=== PATIENT | female | born 1995 | race Two or more races ===

== ENCOUNTER 2022-08-01 10:06 | Emergency (ER) | payer MEDICAID, OTHER ==
[~2022-08-01] VITALS: Ht 165.1 cm; Wt 110.6 kg
[2022-08-01 10:40] VITALS: BP 155/77
[2022-08-01] MEDS ORDERED: IBUP800T27 PO ×2 (11:25→11:26)
== END 2022-08-01 11:23 | disposition home or self-care (01) ==
LOC: ER 10:06
DX: S63.501A Unspecified sprain of right wrist, initial encounter (principal); Z79.1 Long term (current) use of non-steroidal anti-inflammatories (NSAID); Z88.0 Allergy status to penicillin; Z88.1 Allergy status to other antibiotic agents; Z88.8 Allergy status to other drugs, medicaments and biological substances; X50.1XXA Overexertion from prolonged static or awkward postures, initial encounter; Y93.89 Activity, other specified; Y92.89 Other specified places as the place of occurrence of the external cause; Y99.8 Other external cause status
CPT/HCPCS: 73130

== ENCOUNTER 2022-12-14 20:34 | Emergency (ER) | payer MEDICAID ==
[~2022-12-14] VITALS: Ht 165.1 cm; Wt 117.2 kg
[~2022-12-14 20:34] MED LIST: IBUP-1456 PO
[2022-12-14 21:16] LABS: Albumin 3.7 g/dL (3.4-5.0); Calcium 8.4 mg/dL (8.5-10.1); Magnesium 2.2 mg/dL (1.6-2.6)
[2022-12-14 21:20] LABS: BUN/Creatinine Ratio 21.5 (10.0-20.0); Bilirubin, Total 0.2 mg/dL (0.2-1.0); Total Protein 7.4 g/dL (6.4-8.2)
[2022-12-14 21:30] LABS: Basophils # (auto) 0.1 10 ^3/uL (0-0.2); Basophils % (auto) 0.9 % (0.0-2.0); Eosinophils # (auto) 0.6 10 ^3/uL (0-0.8); Eosinophils % (auto) 5.1 % (0.0-7.0); Hematocrit 37.6 % (36.0-46.0); Hemoglobin 12.6 g/dL (12.2-16.2); Lymphocytes # (auto) 2.6 10 ^3/uL (0.4-5.4); Lymphocytes % (auto) 20.8 % (10.0-50.0); Mean Corpuscular Hemoglobin 29.9 pg (28.0-32.0); Mean Corpuscular Hgb Conc. 33.6 g/dL (32.0-36.0); Mean Corpuscular Volume 89.2 fL (80.0-100.0); Monocytes % (auto) 8.2 % (0.0-12.0); Neutrophils # (auto) 8.1 10 ^3/uL (1.6-8.6); Red Blood Cells 4.21 10^6/uL (4.0-5.20); Red Cell Distribution Width 14.6 % (11.8-14.3); White Blood Cell 12.4 10^3/uL (4.4-10.8)
[2022-12-14 21:37] LABS: Urine Bacteria FEW /hpf (None Seen); Urine Blood Negative /uL (Negative); Urine Mucus FEW (None Seen); Urine Specific Gravity 1.022 (1.001-1.035); Urine WBC 4 /hpf (0 - 5)
[2022-12-14] MEDS ORDERED: LORazepam 0.5 MG TAB PO ONE (23:45)
[2022-12-14] MEDS ORDERED: IBUPROFEN 800 MG TAB PO ONE (23:45)
[2022-12-14 23:59] VITALS: BP 128/84
[2022-12-15] MEDS ORDERED: NITR-87 PO (01:01)
[2022-12-15] MEDS ORDERED: CYCL-839 PO (01:01)
[2022-12-15] MEDS ORDERED: IBU600T PO (01:01)
[2022-12-15] MEDS ORDERED: ONDA-144 PO (01:01)
== END 2022-12-15 01:15 | disposition home or self-care (01) ==
LOC: ER 20:34
DX: M94.0 Chondrocostal junction syndrome [Tietze] (principal); F41.9 Anxiety disorder, unspecified; N39.0 Urinary tract infection, site not specified; M62.830 Muscle spasm of back; J45.909 Unspecified asthma, uncomplicated; Z88.1 Allergy status to other antibiotic agents; Z88.0 Allergy status to penicillin; Z88.7 Allergy status to serum and vaccine; Z88.8 Allergy status to other drugs, medicaments and biological substances
CPT/HCPCS: 36415; 71045; 80053; 81001; 83735; 84484; 85025; 93005